=== PATIENT | female | born 2000 | race Caucasian/White ===

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

== ENCOUNTER 2020-02-07 22:21 | Emergency (ER) | payer BC ==
[~2020-02-07] VITALS: Ht 165.1 cm; Wt 79.4 kg
[2020-02-07 22:24] VITALS: BP 124/69
[2020-02-07 23:38] VITALS: BP 124/69
== END 2020-02-07 23:38 | disposition home or self-care (01) ==
LOC: MED 22:21
DX: J40 Bronchitis, not specified as acute or chronic (principal); F17.200 Nicotine dependence, unspecified, uncomplicated; F41.9 Anxiety disorder, unspecified; Z79.899 Other long term (current) drug therapy
CPT/HCPCS: 71045; 99283

== ENCOUNTER 2020-02-11 13:44 | Emergency (ER) | payer BC ==
[~2020-02-11] VITALS: Ht 165.1 cm; Wt 79.4 kg
[2020-02-11 13:55] VITALS: BP 102/53
--- NOTE | 2020-02-11 13:57 | NUR ---
19 YEAR OLD FEMALE COMPLAINS OF SOB ON EXERTION X 6 DAYS. PT STATES SHE ALSO HAS DRY COUGH, SOMETIMES BLOOD WHEN COUGH. PT AOX4, BREATHING EVEN AND UNLABORED, SKIN WARM AND DRY. BED IN LOWEST POSITION, LOCKED, BED RAIL UPX1. PMH - DENIES ALLERGIES - NKA
--- NOTE | 2020-02-11 14:44 | NUR ---
PT ALERT AND AWAKE, BREATHING EVEN AND UNLABORED. NO DISTRESS NOTED.
--- NOTE | 2020-02-11 15:50 | NUR ---
Patient discharged with v/s stable. Written and verbal after care instructions about shortness of breathe given and explained. Patient alert, oriented and verbalized understanding of instructions. Ambulatory with steady gait. All questions addressed prior to discharge. ID band removed. Patient advised to follow up with PMD. Rx of prednisone given. Patient educated on indication of medication including possible reaction and side effects. Opportunity to ask questions provided and answered. Excuse from work given
[2020-02-11 16:11] VITALS: BP 103/57
== END 2020-02-11 15:50 | disposition home or self-care (01) ==
LOC: MED 13:44
DX: R05 Cough (principal); R06.02 Shortness of breath; F17.210 Nicotine dependence, cigarettes, uncomplicated; Z79.899 Other long term (current) drug therapy
CPT/HCPCS: 71045; 99283

== ENCOUNTER 2020-03-16 08:46 | Emergency (ER) | payer BC ==
[~2020-03-16] VITALS: Ht 165.1 cm; Wt 79.8 kg
[2020-03-16 08:50] VITALS: BP 125/78
--- NOTE | 2020-03-16 08:52 | NUR ---
Patient ambulated to lobby with steady gait
--- NOTE | 2020-03-16 09:03 | NUR ---
19 YO F BIB SELF FOR C/C OF ANXIETY, NAUSEA, AND CHEST PAIN/PALPITATIONS. PT IS TEARFUL AND STATES THIS BEGAN AT 0300 TODAY AFTER FINDING OUT SHE "GOT KICKED OUT OF SCHOOL." PT STATES SHE HAS A HX OF ANIXIETY/DEPRESSION AND TAKES MEDICATIONS. MED HX: DEPRESSION/ANXIETY RX: LATUDA, LEXAPRO, TRAZADONE NKA
--- NOTE | 2020-03-16 09:26 | NUR ---
PT AMBULATED TO CHAIR A WITH STEADY GAIT
[2020-03-16 09:56] VITALS: BP 125/78
== END 2020-03-16 09:56 | disposition home or self-care (01) ==
LOC: MED 08:46
DX: F41.9 Anxiety disorder, unspecified (principal); R00.2 Palpitations; Z79.899 Other long term (current) drug therapy
CPT/HCPCS: 99283

== ENCOUNTER 2020-04-23 14:29 | Emergency (ER) | payer BC ==
[~2020-04-23] VITALS: Ht 165.1 cm; Wt 77.1 kg
[2020-04-23 14:34] VITALS: BP 115/75
[2020-04-23 17:04] VITALS: BP 112/71
== END 2020-04-23 17:06 | disposition home or self-care (01) ==
LOC: MED 14:29
DX: S92.301A Fracture of unspecified metatarsal bone(s), right foot, initial encounter for closed fracture (principal); X50.9XXA Other and unspecified overexertion or strenuous movements or postures, initial encounter; Y93.89 Activity, other specified; Y92.89 Other specified places as the place of occurrence of the external cause; Y99.8 Other external cause status
CPT/HCPCS: 73610; 73630; 99284

== ENCOUNTER 2020-08-08 22:25 | Emergency (ER) | payer BC ==
[~2020-08-08] VITALS: Ht 165.1 cm; Wt 81.6 kg
[2020-08-08 22:30] VITALS: BP 113/60
--- NOTE | 2020-08-08 22:30 | NUR ---
TO BED AMBULATORY
--- NOTE | 2020-08-08 22:35 | NUR ---
BIB SELF, 20, FEMALE, AAOX4, ON ROOM AIR, NO DISTRESS, C/O LEFT EYE PAIN THAT STARTED YESTERDAY 08/07/20, PT STATES THAT SHE DROPS AN EYE DROP W/ NO RELIEF. HX: DEPRESSION, ANXIETY, NKA. SAFETY MEASURES IN PLACE, WILL MONITOR.
--- NOTE | 2020-08-08 23:00 | NUR ---
YULIA RUBY AT BEDSIDE FOR MEDICAL EVALUATION.
[2020-08-08] MEDS ORDERED: FLUORESCEIN OPTH STRIP 1 MG OP ONE (23:05)
--- NOTE | 2020-08-08 23:24 | NUR ---
TAMARA MERCEDES PLACED AT BEDSIDE.
[2020-08-08] MEDS ORDERED: TETRACAINE HCL/PF 0.5% OPTH 4 ML BTL OP ONE (23:25)
--- NOTE | 2020-08-08 23:47 | NUR ---
YULIA IS AT BEDSIDE ADMINISTERING THE MEDS.
[2020-08-08] MEDS ORDERED: POLY10SO OP (23:54)
[2020-08-09 00:15] VITALS: BP 113/60
--- NOTE | 2020-08-09 00:15 | NUR ---
Patient discharged with v/s stable. Written and verbal after care instructions given and explained. Patient alert, oriented and verbalized understanding of instructions. Ambulatory with steady gait. All questions addressed prior to discharge. ID band removed. Patient advised to follow up with PMD. Rx of POLYMYXIN B SULF / TRIMETHOPRIM EYE DROP given. Patient educated on indication of medication including possible reaction and side effects. Opportunity to ask questions provided and answered.
== END 2020-08-09 00:15 | disposition home or self-care (01) ==
LOC: MED 22:25
DX: H10.9 Unspecified conjunctivitis (principal); F32.9 Major depressive disorder, single episode, unspecified; F41.9 Anxiety disorder, unspecified; Z79.899 Other long term (current) drug therapy
CPT/HCPCS: 99283

== ENCOUNTER 2020-08-22 14:40 | Emergency (ER) | payer BC ==
[~2020-08-22] VITALS: Ht 154.9 cm; Wt 70.3 kg
[~2020-08-22 14:40] MED LIST changes: +POLY10SO OP
[2020-08-22 14:46] VITALS: BP 105/66
--- NOTE | 2020-08-22 14:51 | NUR ---
20/F PT C/O VAGINAL BLEEDING X 2 DAYS, STATES SHE HAS IUD IMPLANT AND DOES NOT NORMALLY HAVE PERIOD. STATES HEAVY VAGINAL BLEEDING WITH DIZZINESS, LOWER ABD PAIN AND NAUSEA SINCE YESTERDAY. MEDHX: ANEMIA, DEPRESSION, ANXIETY NKA
[2020-08-22] MEDS ORDERED: KETOROLAC 60 MG/2 ML VIAL IM ONE (15:35)
[2020-08-22] MEDS ORDERED: ONDA8TAB87 PO (15:45)
[2020-08-22] MEDS ORDERED: IBUP-2213 PO (15:45)
[2020-08-22] MEDS ORDERED: MEDR10TA PO (15:45)
[2020-08-22] MEDS ORDERED: ACET-8386 PO (15:45)
--- NOTE | 2020-08-22 15:50 | NUR ---
Patient discharged with v/s stable. Written and verbal after care instructions given and explained. Patient alert, oriented and verbalized understanding of instructions. Ambulatory with steady gait. All questions addressed prior to discharge. ID band removed. Patient advised to follow up with PMD. Rx of IBUPROFEN, NORCO, PROVERA, ZOFRAN given. Patient educated on indication of medication including possible reaction and side effects. Opportunity to ask questions provided and answered.
[2020-08-22 15:51] VITALS: BP 105/66
== END 2020-08-22 15:50 | disposition home or self-care (01) ==
LOC: MED 14:40
DX: N93.8 Other specified abnormal uterine and vaginal bleeding (principal); R11.0 Nausea; R42 Dizziness and giddiness; D64.9 Anemia, unspecified; F32.9 Major depressive disorder, single episode, unspecified; F41.9 Anxiety disorder, unspecified; Z79.899 Other long term (current) drug therapy
CPT/HCPCS: 81002; 81025; 96372; 99283; J1885

== ENCOUNTER 2020-08-23 21:21 | Emergency (ER) | payer BC ==
[~2020-08-23] VITALS: Ht 165.1 cm; Wt 85.3 kg
[~2020-08-23 21:21] MED LIST changes: +ACET-8386 PO; +MEDR10TA PO; +ONDA8TAB87 PO
[2020-08-23 21:31] VITALS: BP 134/77
--- NOTE | 2020-08-23 21:40 | NUR ---
PT. IS A 20 Y/O FEMALE THAT CAME INTO ED WITH CHIEF COMPLANTS OF NAUSEA/VOMITING/DIARRHEA SINCE LAST NIGHT. SHE ALSO STATES THAT "HER LOWER LEFT ABDOMINAL HURTS AND A LITTLE ON HER BACK." PT. STATES THAT SHE HAS A CONTROL IMPLANT IN ARM, BUT RECENTLY HAD PERIOD ON 08/20/20. SHE STATES THAT HER PAIN IS 9/10 OF NOW. SKIN IS PINK/WARM/DRY; AAOX4 WITH EVEN AND STEADY GAIT;HR EVEN AND REGULAR; PT DENIES ANY FEVER, CP, SOB, OR COUGH AT THIS TIME; VSS; PATIENT POSITIONED FOR COMFORT; HOB ELEVATED; BEDRAILS UP X2; BED DOWN. ER MADE AWARE OF PT STATUS. PMH: OVARIAN CYST (2016) ALLERGIES: NKA
[2020-08-23 21:59] LABS: BASOPHILS # (AUTO) 0.1 K/uL (0.00-0.22); BASOPHILS % (AUTO) 0.7 % (0.0-2.0); EOSINOPHILS # (AUTO) 0.2 K/uL (0-0.4); EOSINOPHILS % (AUTO) 1.6 % (0.0-4.0); HEMATOCRIT 37.6 % (36-48); HEMOGLOBIN 12.6 g/dL (12.0-16.0); LYMPHOCYTES # (AUTO) 2.8 K/uL (2.5-16.5); LYMPHOCYTES % (AUTO) 29.2 % (20.5-51.1); MEAN CORPUSCULAR HEMOGLOBIN 29 pg (27-31); MEAN CORPUSCULAR HGB CONC 33 g/dL (33-37); MEAN CORPUSCULAR VOLUME 87.6 fL (80-94); MONOCYTES # (AUTO) 0.5 K/uL (0.8-1.0); MONOCYTES % (AUTO) 4.7 % (1.7-9.3); NEUTROPHILS # (AUTO) 6.2 K/uL (1.8-7.7); NEUTROPHILS % (AUTO) 63.8 % (42.2-75.2); PLATELET COUNT (AUTO) 365 K/uL (140-450); RED BLOOD CELL COUNT(AUTO) 4.29 MIL/uL (4.20-5.40); RED CELL DISTRIBUTION WIDTH 13.6 % (11.6-13.7); WHITE BLOOD COUNT (AUTO) 9.7 K/uL (4.5-11.0)
--- NOTE | 2020-08-23 21:59 | NUR ---
ULTRASOUND IS AT BEDSIDE
[2020-08-23 22:13] LABS: ALBUMIN 3.6 g/dL (3.4-5.0); ANION GAP 11.9 (8-16); CARBON DIOXIDE 24.7 mmol/L (21-32); CREATININE 0.8 mg/dL (0.6-1.3); POTASSIUM 3.6 mmol/L (3.5-5.1); TOTAL BILIRUBIN 0.2 mg/dL (0.0-1.0)
--- NOTE | 2020-08-23 23:07 | NUR ---
DR DAVEY AT BEDSIDE FOR EXAM
[2020-08-23] MEDS ORDERED: ONDANSETRON 4 MG/2 ML VIAL ONE (23:15)
[2020-08-23] MEDS: ONDANSETRON 4 MG/2 ML VIAL IVP ONE (23:41)
[2020-08-24] MEDS: KETOROLAC 30 MG/ML VIAL IVP ONE (00:07)
[2020-08-24] MEDS ORDERED: NAPR-1559 PO (01:02)
[2020-08-24] MEDS: NACL 0.9% 1,000 ML IV SCH (01:16)
[2020-08-24 01:17] VITALS: BP 105/58
== END 2020-08-24 00:17 | disposition home or self-care (01) ==
LOC: MED 21:21
DX: N94.6 Dysmenorrhea, unspecified (principal); Z79.899 Other long term (current) drug therapy
CPT/HCPCS: 36415; 76830; 80053; 81002; 81025; 83690; 85025; 96361; 96374; 96375; 99284; J1885; J2405; J7030

== ENCOUNTER 2020-10-02 21:53 | Emergency (ER) | payer BC ==
[~2020-10-02] VITALS: Ht 160 cm; Wt 77.1 kg
[~2020-10-02 21:53] MED LIST changes: +NAPR-1559 PO
[2020-10-02 22:14] VITALS: BP 112/60
--- NOTE | 2020-10-02 22:17 | NUR ---
TO LOBBY A/W BED AMBULATORY
[2020-10-02 23:46] LABS: APPEARANCE,URINE CLEAR (CLEAR); BILIRUBIN,URINE NEGATIVE (NEGATIVE); BLOOD, URINE 1+ (NEGATIVE); COLOR,URINE YELLOW (YELLOW); LEUKOCYTE ESTERASE ,URINE NEGATIVE (NEGATIVE); NITRITE, URINE NEGATIVE (NEGATIVE); UGLUCOSE NEGATIVE (NEGATIVE)
[2020-10-03] LABS: WBC,URINE 0-5 /HPF (0-5)
--- NOTE | 2020-10-03 00:06 | NUR ---
PT CALLED FOR IN LOBBY - NO ANSWER
--- NOTE | 2020-10-03 00:19 | NUR ---
PT AMBULATED TO BED #3
[2020-10-03] MEDS ORDERED: cephALEXin 500 MG CAP PO ONE (00:35)
[2020-10-03 02:15] VITALS: BP 108/68
[2020-10-03] MEDS ORDERED: CEPH-588 PO (02:42)
== END 2020-10-03 02:55 | disposition home or self-care (01) ==
LOC: MED 21:53
DX: N39.0 Urinary tract infection, site not specified (principal); Z79.899 Other long term (current) drug therapy
CPT/HCPCS: 76856; 81001; 81025; 87086; 99284

== ENCOUNTER 2021-02-12 03:20 | Emergency (ER) | payer BC ==
[~2021-02-12] VITALS: Ht 162.6 cm; Wt 75.3 kg
[~2021-02-12 03:20] MED LIST changes: +CEPH-588 PO
[2021-02-12 03:26] VITALS: BP 120/70
--- NOTE | 2021-02-12 03:40 | NUR ---
PT AMBULATED TO BED 03.
[2021-02-12] MEDS ORDERED: KETOROLAC 30 MG/ML VIAL IVP ONE (04:00)
[2021-02-12 04:26] LABS: BASOPHILS # (AUTO) 0.1 K/uL (0.00-0.22); BASOPHILS % (AUTO) 0.5 % (0.0-2.0); EOSINOPHILS # (AUTO) 0.1 K/uL (0-0.4); EOSINOPHILS % (AUTO) 1.3 % (0.0-4.0); HEMATOCRIT 33.1 % (36-48); HEMOGLOBIN 11.1 g/dL (12.0-16.0); LYMPHOCYTES # (AUTO) 3.3 K/uL (2.5-16.5); LYMPHOCYTES % (AUTO) 31.7 % (20.5-51.1); MEAN CORPUSCULAR HEMOGLOBIN 29 pg (27-31); MEAN CORPUSCULAR HGB CONC 34 g/dL (33-37); MEAN CORPUSCULAR VOLUME 86.9 fL (80-94); MONOCYTES # (AUTO) 0.6 K/uL (0.8-1.0); MONOCYTES % (AUTO) 6.1 % (1.7-9.3); NEUTROPHILS # (AUTO) 6.3 K/uL (1.8-7.7); NEUTROPHILS % (AUTO) 60.4 % (42.2-75.2); PLATELET COUNT (AUTO) 297 K/uL (140-450); RED BLOOD CELL COUNT(AUTO) 3.81 MIL/uL (4.20-5.40); RED CELL DISTRIBUTION WIDTH 13.6 % (11.6-13.7); WHITE BLOOD COUNT (AUTO) 10.5 K/uL (4.5-11.0)
--- NOTE | 2021-02-12 04:40 | NUR ---
20 Y/O F BIB BY SELF FOR RT FLANK PAIN RADIATING TO LOWER STOMACH. PT SAID PAIN HAS BEEN FOR A FEW WEEK AND HER PCP ORDERED A ULTRASOUND. PT HAS NAUSEA , VOMITING, CHILLS, SHAKING, NO FEVER . PCP DIAGNOSED HER WITH IBS AND GAVE RX BUT HAS NOT HAD RELIEF. PT HAS BEEN TAKING ALEVE FOR PAIN. LAST MENSTRUAL: 01/26/21 LAST BM: 02/11/21 PAST MED HX: STOMACH ULCERS 2X KIDNEY STONES FATTY GALLBLADDER
[2021-02-12 04:41] LABS: ALBUMIN 3.2 g/dL (3.4-5.0); ANION GAP 14.1 (8-16); CARBON DIOXIDE 23.4 mmol/L (21-32); CREATININE 0.8 mg/dL (0.6-1.3); POTASSIUM 3.5 mmol/L (3.5-5.1); TOTAL BILIRUBIN 0.2 mg/dL (0.0-1.0)
[2021-02-12 05:40] LABS: APPEARANCE,URINE CLEAR (CLEAR); BILIRUBIN,URINE NEGATIVE (NEGATIVE); BLOOD, URINE TRACE-I (NEGATIVE); COLOR,URINE YELLOW (YELLOW); LEUKOCYTE ESTERASE ,URINE NEGATIVE (NEGATIVE); NITRITE, URINE NEGATIVE (NEGATIVE); UGLUCOSE NEGATIVE (NEGATIVE)
--- NOTE | 2021-02-12 05:45 | NUR ---
PT SIGNED CONTRAST CONSENT FORM
[2021-02-12 05:49] LABS: RBC,URINE 0-5 /HPF (0-5)
[2021-02-12 05:50] LABS: WBC,URINE 0-5 /HPF (0-5)
[2021-02-12] MEDS ORDERED: MAGN1.7529 PO (06:43)
--- NOTE | 2021-02-12 06:46 | NUR ---
Ambika kearney in ED - 02/12/21 at 0649 by [email or web address] Chart checked and completed. The patient's care was reviewed and supervised by Galo Arguelles ED, RN.
--- NOTE | 2021-02-12 06:46 | NUR ---
Ambika kearney in [facility] - 02/12/21 at 0649 by [id number] PATIENT CLEARED FOR DISCHARGE AT THIS [facility] WITH NO FURTHER QUESTIONS AFTER DISCHARGE TEACHING. ADVISED TO FOLLOW UP WITH PCP AND RETURN IF CONDITION WORSENS.
[2021-02-12 07:00] VITALS: BP 103/58
--- NOTE | 2021-02-12 07:01 | NUR ---
Chart checked and completed. The patient's care was reviewed and supervised by [facility] ED, RN.
== END 2021-02-12 06:46 | disposition home or self-care (01) ==
LOC: MED 03:20
DX: Z79.899 Other long term (current) drug therapy (principal); K59.00 Constipation, unspecified; Z79.1 Long term (current) use of non-steroidal anti-inflammatories (NSAID); Z79.2 Long term (current) use of antibiotics; Z79.891 Long term (current) use of opiate analgesic
CPT/HCPCS: 36415; 74018; 74176; 80053; 81001; 81025; 83690; 85025; 87086; 96374; 99285; J1885

== ENCOUNTER 2021-04-20 11:58 | Emergency (ER) | payer BC ==
[~2021-04-20] VITALS: Ht 154.9 cm; Wt 61.2 kg
[~2021-04-20 11:58] MED LIST changes: +MAGN1.7529 PO
[2021-04-20 12:18] VITALS: BP 132/71
[2021-04-20] MEDS ORDERED: WATER STERILE 10 ML MC ONE (12:39)
[2021-04-20] MEDS ORDERED: methylPREDNISolone SS 125 MG/2 ML VIAL ONE (12:39)
[2021-04-20] MEDS ORDERED: methylPREDNISolone SS 125 MG in WATER STERILE 2 ML IM ONE (12:40)
[2021-04-20] MEDS ORDERED: PRED20TA5 PO (12:42)
[2021-04-20] MEDS ORDERED: ACYC-278 PO (12:42)
[2021-04-20] MEDS ORDERED: DIPH25TA53 PO (12:42)
[2021-04-20 12:55] VITALS: BP 108/80
== END 2021-04-20 12:55 | disposition home or self-care (01) ==
LOC: MED 11:58
DX: T78.1XXA Other adverse food reactions, not elsewhere classified, initial encounter (principal); B00.9 Herpesviral infection, unspecified; Z79.899 Other long term (current) drug therapy
CPT/HCPCS: 96372; 99283; J2930

== ENCOUNTER 2021-07-10 11:39 | Emergency (ER) | payer BC ==
[~2021-07-10] VITALS: Ht 162.6 cm; Wt 78.1 kg
[~2021-07-10 11:39] MED LIST changes: +ACYC-278 PO; +DIPH25TA53 PO; +PRED20TA5 PO
[2021-07-10 11:42] VITALS: BP 111/62
--- NOTE | 2021-07-10 12:14 | NUR ---
Patient being evaluated by DR CHUNG at bedside.
--- NOTE | 2021-07-10 12:20 | NUR ---
21 Y/O FEMALE C/O CHEST PAIN 10/06 EXACERBATED BY COUGHING X LAST NIGHT BY THE STERNUM, MIGRAINESX THURSDAY, AND BURNING AND PAIN UPON URINATION XLAST WEEK, RUNNY NOSE. 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 STATED THAT THEY COUGH OUT YELLOW/GREENISH SPUTUM UPON WAKING AT HOME. RESPIRATIONS EVEN AND UNLABORED. TAKING AZO AND NOW NOTES BLOOD UPON WIPING. NKA PMH: IBS, MIGRAINES
[2021-07-10] MEDS ORDERED: ACETAMINOPHEN EXTRA STRENGTH 500 MG TAB PO ONE (12:25)
[2021-07-10] MEDS ORDERED: PHENAZOPYRIDINE 100 MG TAB PO ONE (12:25)
[2021-07-10] MEDS ORDERED: cephALEXin 500 MG CAP PO ONE (12:25)
--- NOTE | 2021-07-10 12:25 | NUR ---
RAD AT BEDSIDE
--- NOTE | 2021-07-10 12:37 | NUR ---
MATTHIAS WALKED TO LAB
--- NOTE | 2021-07-10 12:39 | NUR ---
AMBULATED TO THE BATHROOM WITH STEADY GAIT
[2021-07-10 12:57] LABS: ALBUMIN 3.4 g/dL (3.4-5.0); ANION GAP 12.9 (8-16); ASPARTATE AMINOTRANSFERASE 13 U/L (15-37); CHLORIDE 106 mmol/L (98-107); CREATININE 0.7 mg/dL (0.6-1.3); GFR ARICAN-AMERICAN 136 mL/min (>90); GLUCOSE 85 mg/dL (74-106); POTASSIUM 3.9 mmol/L (3.5-5.1); SODIUM SERUM 140 mmol/L (136-145); TOTAL BILIRUBIN 0.4 mg/dL (0.0-1.0); UREA NITROGEN, BLOOD 9 mg/dL (7-18)
[2021-07-10 12:58] LABS: BASOPHILS # (AUTO) 0.1 K/uL (0.00-0.22); BASOPHILS % (AUTO) 0.7 % (0.0-2.0); EOSINOPHILS # (AUTO) 0.1 K/uL (0-0.4); EOSINOPHILS % (AUTO) 1.5 % (0.0-4.0); HEMATOCRIT 37.3 % (36-48); HEMOGLOBIN 12.4 g/dL (12.0-16.0); LYMPHOCYTES # (AUTO) 2.6 K/uL (2.5-16.5); MEAN CORPUSCULAR HEMOGLOBIN 29 pg (27-31); MEAN CORPUSCULAR HGB CONC 33 g/dL (33-37); MEAN CORPUSCULAR VOLUME 87.1 fL (80-94); MONOCYTES # (AUTO) 0.6 K/uL (0.8-1.0); MONOCYTES % (AUTO) 6.2 % (1.7-9.3); NEUTROPHILS # (AUTO) 6.4 K/uL (1.8-7.7); NEUTROPHILS % (AUTO) 65.6 % (42.2-75.2); PLATELET COUNT (AUTO) 365 K/uL (140-450); RED BLOOD CELL COUNT(AUTO) 4.29 MIL/uL (4.20-5.40); RED CELL DISTRIBUTION WIDTH 13.3 % (11.6-13.7); WHITE BLOOD COUNT (AUTO) 9.8 K/uL (4.8-10.8)
[2021-07-10] MEDS ORDERED: CEPH-588 PO (13:33)
[2021-07-10] MEDS ORDERED: IBUP-2213 PO (13:33)
[2021-07-10] MEDS ORDERED: PYR100 PO (13:33)
[2021-07-10 13:55] VITALS: BP 103/64
--- NOTE | 2021-07-10 13:56 | NUR ---
Patient discharged with v/s stable. Written and verbal after care instructions ABOUT COSTOCONDRITIS AND UTI given and explained. Patient alert, oriented and verbalized understanding of instructions. Ambulatory with steady gait. All questions addressed prior to discharge. ID band removed. Patient advised to follow up with PMD. Rx of KELFEX, IBUPROFEN, PYRIDIUM given. Patient educated on indication of medication including possible reaction and side effects. Opportunity to ask questions provided and answered.
[2021-07-10 17:25] LABS: APPEARANCE,URINE HAZY (CLEAR); BILIRUBIN,URINE NEGATIVE (NEGATIVE); BLOOD, URINE 3+ (NEGATIVE); COLOR,URINE YELLOW (YELLOW); LEUKOCYTE ESTERASE ,URINE NEGATIVE (NEGATIVE); NITRITE, URINE POSITIVE (NEGATIVE); PH,URINE 6.5 (5.0-9.0); UGLUCOSE NEGATIVE (NEGATIVE)
[2021-07-10 17:44] LABS: RBC,URINE TOO NUMEROUS TO COUN /HPF (0-5)
== END 2021-07-10 13:55 | disposition home or self-care (01) ==
LOC: MED 11:39
DX: M94.0 Chondrocostal junction syndrome [Tietze] (principal); N39.0 Urinary tract infection, site not specified; Z20.822 Contact with and (suspected) exposure to COVID-19
CPT/HCPCS: 36415; 71045; 80053; 81001; 81025; 84484; 85025; 87086; 87426; 93005; 99285; Q0092

== ENCOUNTER 2021-12-23 14:07 | Emergency (ER) | payer BC ==
[~2021-12-23] VITALS: Ht 162.6 cm; Wt 77.6 kg
[~2021-12-23 14:07] MED LIST changes: -MAGN1.7529 PO; +MAGN296S2 PO; +PYR100 PO
[2021-12-23 14:33] VITALS: BP 111/54
--- NOTE | 2021-12-23 14:39 | NUR ---
BIB SELF C/O 10/10 RIGHT KNEE PAIN X2 DAYS. DENIES TRAUMA RECENTLY. PMH: ANEMIA, TORN RIGHT ACL RIGHT KNEE 4 YEARS AGO
[2021-12-23] MEDS ORDERED: IBUP-2213 PO (16:37)
--- NOTE | 2021-12-23 17:06 | NUR ---
Crutches dispensed. Taught proper use, patient returned demo. ANABEL WRAP X 1 TO R KNEE + CMS
--- NOTE | 2021-12-23 17:10 | NUR ---
Patient discharged with v/s stable. Written and verbal after care instructions given. Patient alert, oriented and verbalized understanding of instructions. Ambulatory with steady gait. All questions addressed prior to discharge. ID band removed. Patient advised to follow up with PMD. Rx of IBUPROFEN given. Opportunity to ask questions provided and answered. WROK NOTE HANDED TO PATIENT.
== END 2021-12-23 17:10 | disposition home or self-care (01) ==
LOC: MED 14:07
DX: S86.911A Strain of unspecified muscle(s) and tendon(s) at lower leg level, right leg, initial encounter (principal); Z86.2 Personal history of diseases of the blood and blood-forming organs and certain disorders involving the immune mechanism; Z79.899 Other long term (current) drug therapy; Z79.1 Long term (current) use of non-steroidal anti-inflammatories (NSAID); Z79.2 Long term (current) use of antibiotics; Z79.891 Long term (current) use of opiate analgesic; X58.XXXA Exposure to other specified factors, initial encounter; Y92.89 Other specified places as the place of occurrence of the external cause; Y93.89 Activity, other specified; Y99.8 Other external cause status
CPT/HCPCS: 99283

== ENCOUNTER 2022-08-05 18:54 | Emergency (ER) | payer BC ==
[~2022-08-05] VITALS: Ht 162.6 cm; Wt 81.2 kg
[~2022-08-05 18:54] MED LIST changes: -ACET-8386 PO; +ACET-8905 PO; -MAGN296S2 PO; +MAGN296S70 PO
[2022-08-05 19:05] VITALS: BP 120/72
--- NOTE | 2022-08-05 19:22 | NUR ---
Patient taken to bed 2.
--- NOTE | 2022-08-05 19:56 | NUR ---
Dr. Bruner examining patient.
[2022-08-05 19:59] LABS: APPEARANCE,URINE CLEAR (CLEAR); BILIRUBIN,URINE NEGATIVE (NEGATIVE); BLOOD, URINE 3+ (NEGATIVE); COLOR,URINE YELLOW (YELLOW); LEUKOCYTE ESTERASE ,URINE NEGATIVE (NEGATIVE); NITRITE, URINE NEGATIVE (NEGATIVE); PH,URINE 6.5 (5.0-9.0); UGLUCOSE NEGATIVE (NEGATIVE)
[2022-08-05 20:01] LABS: BASOPHILS # (AUTO) 0.1 K/uL (0.00-0.22); BASOPHILS % (AUTO) 0.8 % (0.0-2.0); EOSINOPHILS # (AUTO) 0.2 K/uL (0-0.4); EOSINOPHILS % (AUTO) 1.4 % (0.0-4.0); HEMOGLOBIN 11.9 g/dL (12.0-16.0); LYMPHOCYTES # (AUTO) 2.7 K/uL (2.5-16.5); LYMPHOCYTES % (AUTO) 24.6 % (20.5-51.1); MEAN CORPUSCULAR HEMOGLOBIN 29 pg (27-31); MEAN CORPUSCULAR HGB CONC 33 g/dL (33-37); MEAN CORPUSCULAR VOLUME 87.2 fL (80-94); MONOCYTES # (AUTO) 0.6 K/uL (0.8-1.0); MONOCYTES % (AUTO) 5.4 % (1.7-9.3); NEUTROPHILS # (AUTO) 7.5 K/uL (1.8-7.7); NEUTROPHILS % (AUTO) 67.8 % (42.2-75.2); PLATELET COUNT (AUTO) 382 K/uL (140-450); RED BLOOD CELL COUNT(AUTO) 4.13 MIL/uL (4.20-5.40); RED CELL DISTRIBUTION WIDTH 13.1 % (11.6-13.7); WHITE BLOOD COUNT (AUTO) 11.1 K/uL (4.8-10.8)
--- NOTE | 2022-08-05 20:05 | NUR ---
Pt ambulatory from home with c/o RLQ pain associated with nausea & loose stools x1 day. Afebrile. Denies vomiting.
[2022-08-05 20:07] LABS: RBC,URINE >100 /HPF (0-5)
[2022-08-05] MEDS ORDERED: LOPE-289 PO (20:09)
[2022-08-05] MEDS ORDERED: BEN10 PO (20:09)
[2022-08-05] MEDS ORDERED: DICYCLOMINE HCL LIQUID 20 MG, ALUMINUM HYD/MAG/SIMETHICONE 30 ML, LIDOCAINE VISCOUS 2% ... PO ONE ×3 (20:10)
[2022-08-05 20:17] LABS: ALBUMIN 3.7 g/dL (3.4-5.0); ANION GAP 9.8 (8-16); CARBON DIOXIDE 27.2 mmol/L (21-32); CREATININE 0.8 mg/dL (0.6-1.3); TOTAL BILIRUBIN 0.2 mg/dL (0.0-1.0)
[2022-08-05] MEDS ORDERED: DICYCLOMINE HCL LIQUID 10 MG/5 ML UDC ONE (20:22)
[2022-08-05] MEDS ORDERED: ALUMINUM HYD/MAG/SIMETHICONE 30 ML UDC ONE (20:22)
--- NOTE | 2022-08-05 20:29 | NUR ---
Patient discharged with v/s stable. Written and verbal after care instructions given and explained. Patient alert, oriented and verbalized understanding of instructions. All questions addressed prior to discharge. ID band removed. Patient advised to follow up with PMD. Rx of Bentyl and Imodium sent to preferred pharmacy. Patient educated on indication of medication including possible reaction and side effects. Opportunity to ask questions provided and answered.
[2022-08-05 20:31] VITALS: BP 108/69
== END 2022-08-05 20:29 | disposition home or self-care (01) ==
LOC: MED 18:54
DX: R10.30 Lower abdominal pain, unspecified (principal); R19.7 Diarrhea, unspecified; N93.9 Abnormal uterine and vaginal bleeding, unspecified; K58.9 Irritable bowel syndrome, unspecified; Z79.899 Other long term (current) drug therapy
CPT/HCPCS: 36415; 80053; 81001; 81025; 85025; 99283

== ENCOUNTER 2022-09-23 15:04 | Emergency (ER) | payer BC ==
[~2022-09-23] VITALS: Ht 162.6 cm; Wt 65.8 kg
[~2022-09-23 15:04] MED LIST changes: +BEN10 PO; +LOPE-289 PO
[2022-09-23 15:24] VITALS: BP 119/62; PULSE 80; RESP 17; TEMP 97.4; O2SAT 99
[2022-09-23] MEDS ORDERED: KETOROLAC 30 MG/ML VIAL IM ONE (16:00)
[2022-09-23] MEDS ORDERED: ACET-10509 PO (16:55)
[2022-09-23] MEDS ORDERED: IBUP-2213 PO (16:55)
[2022-09-23 17:09] VITALS: O2SAT 99
--- NOTE | 2022-09-23 17:10 | NUR ---
Patient discharged with v/s stable. Written and verbal after care instructions given and explained. Patient alert, oriented and verbalized understanding of instructions. Ambulatory with steady gait. All questions addressed prior to discharge. ID band removed. Patient advised to follow up with PMD. Rx of lidoderm patch given. Patient educated on indication of medication including possible reaction and side effects. Opportunity to ask questions provided and answered.
== END 2022-09-23 17:08 | disposition home or self-care (01) ==
LOC: MED 15:04
DX: M54.6 Pain in thoracic spine (principal); R07.81 Pleurodynia; Z79.899 Other long term (current) drug therapy; Z79.1 Long term (current) use of non-steroidal anti-inflammatories (NSAID); Z79.2 Long term (current) use of antibiotics
CPT/HCPCS: 71045; 71100; 81025; 96372; 99284; J1885

== ENCOUNTER 2022-11-12 07:05 | Emergency (ER) | payer BC ==
[~2022-11-12] VITALS: Ht 162.6 cm; Wt 72.6 kg
[~2022-11-12 07:05] MED LIST changes: +ACET-10509 PO
[2022-11-12 07:11] VITALS: BP 111/70; PULSE 70; RESP 18; TEMP 97.3; O2SAT 99
[2022-11-12] MEDS ORDERED: KETOROLAC 15 MG/ML VIAL IVP ONE (07:55)
[2022-11-12] MEDS ORDERED: ONDANSETRON 4 MG/2 ML VIAL IVP ONE (07:55)
[2022-11-12] MEDS ORDERED: NACL 0.9% 1,000 ML IV SCH (07:55)
[2022-11-12 08:10] LABS: EOSINOPHILS # (AUTO) 0.1 K/uL (0-0.4); HEMOGLOBIN 11.6 g/dL (12.0-16.0); PLATELET COUNT (AUTO) 337 K/uL (140-450)
[2022-11-12 08:13] LABS: APPEARANCE,URINE CLEAR (CLEAR); BILIRUBIN,URINE NEGATIVE (NEGATIVE); BLOOD, URINE NEGATIVE (NEGATIVE); COLOR,URINE YELLOW (YELLOW); LEUKOCYTE ESTERASE ,URINE TRACE (NEGATIVE); NITRITE, URINE NEGATIVE (NEGATIVE); PROTEIN,URINE NEGATIVE (NEGATIVE); UGLUCOSE NEGATIVE (NEGATIVE); UROBILINOGEN,URINE 0.2 EU/dL (0.2 - 1)
[2022-11-12 08:17] LABS: BASOPHILS # (AUTO) 0.1 K/uL (0.00-0.22); EOSINOPHILS % (AUTO) 1.5 % (0.0-4.0); HEMATOCRIT 34.5 % (36-48); LYMPHOCYTES # (AUTO) 2.2 K/uL (2.5-16.5); LYMPHOCYTES % (AUTO) 25.5 % (20.5-51.1); MEAN CORPUSCULAR HEMOGLOBIN 29 pg (27-31); MEAN CORPUSCULAR HGB CONC 33 g/dL (33-37); MEAN CORPUSCULAR VOLUME 87.9 fL (80-94); MONOCYTES # (AUTO) 0.5 K/uL (0.8-1.0); MONOCYTES % (AUTO) 6.2 % (1.7-9.3); NEUTROPHILS # (AUTO) 5.8 K/uL (1.8-7.7); NEUTROPHILS % (AUTO) 65.8 % (42.2-75.2); RED BLOOD CELL COUNT(AUTO) 3.93 MIL/uL (4.20-5.40); RED CELL DISTRIBUTION WIDTH 13.9 % (11.6-13.7); WHITE BLOOD COUNT (AUTO) 8.8 K/uL (4.8-10.8)
[2022-11-12 08:25] LABS: ALANINE AMINOTRANSFERASE 82 U/L (12-78); ALBUMIN 3.2 g/dL (3.4-5.0); ALKALINE PHOSPHATASE 148 U/L (50-136); ANION GAP 9.8 (8-16); ASPARTATE AMINOTRANSFERASE 57 U/L (15-37); CALCIUM 8.1 mg/dL (8.5-10.1); CARBON DIOXIDE 27.4 mmol/L (21-32); CHLORIDE 105 mmol/L (98-107); CREATININE 0.8 mg/dL (0.6-1.3); GFR ARICAN-AMERICAN 115 mL/min (>90); GFR NON ARICAN-AMERICAN 95 mL/min (>90); GLUCOSE 91 mg/dL (74-106); POTASSIUM 4.2 mmol/L (3.5-5.1); SODIUM SERUM 138 mmol/L (136-145); TOTAL BILIRUBIN 0.4 mg/dL (0.0-1.0); UREA NITROGEN, BLOOD 9 mg/dL (7-18)
[2022-11-12] MEDS ORDERED: LACT-103 PO (09:14)
[2022-11-12 09:49] VITALS: BP 134/79; PULSE 72; RESP 18; O2SAT 98
== END 2022-11-12 09:50 | disposition home or self-care (01) ==
LOC: MED 07:05
DX: K80.20 Calculus of gallbladder without cholecystitis without obstruction (principal); K59.00 Constipation, unspecified; N83.202 Unspecified ovarian cyst, left side; Z79.899 Other long term (current) drug therapy
CPT/HCPCS: 36415; 74176; 80053; 81003; 81025; 83690; 85025; 96361; 96374; 96375; 99285; J1885; J2405; J7030

== ENCOUNTER 2023-08-26 20:36 | Emergency (ER) | payer BC ==
[~2023-08-26] VITALS: Ht 162.6 cm; Wt 81.6 kg
[~2023-08-26 20:36] MED LIST changes: +LACT-191 PO
[2023-08-26 20:42] VITALS: BP 109/58; PULSE 89; RESP 16; TEMP 97.8; O2SAT 100
[2023-08-26 21:13] VITALS: BP 109/58; PULSE 89; RESP 16; TEMP 97.8; O2SAT 100
[2023-08-26] MEDS: ACETAMINOPHEN EXTRA STRENGTH 500 MG TAB PO ONE (21:22)
[2023-08-26] MEDS ORDERED: ACET-10509 PO (21:36)
== END 2023-08-26 21:40 | disposition home or self-care (01) ==
LOC: MED 20:36
DX: S09.90XA Unspecified injury of head, initial encounter (principal); Z79.899 Other long term (current) drug therapy; W20.8XXA Other cause of strike by thrown, projected or falling object, initial encounter; Y93.89 Activity, other specified; Y92.89 Other specified places as the place of occurrence of the external cause; Y99.8 Other external cause status
CPT/HCPCS: 99283